=== PATIENT | male | born 1995 | race Caucasian/White ===

== ENCOUNTER 2021-11-09 17:27 | Emergency (ER) | payer OTHER, MEDICAID, SELFPAY ==
[2021-11-09 17:29] VITALS: BP 113/74; PULSE 87; RESP 18; TEMP 36.2; O2SAT 100
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
== END 2021-11-09 17:45 | disposition home or self-care (01) ==
LOC: ED 17:52
PROVIDERS: Emergency Provider Emergency Medicine
DX: Z00.8 Encounter for other general examination (principal)
CPT/HCPCS: 99281